=== PATIENT | female | born 1965 | race Caucasian/White ===

== ENCOUNTER 2016-12-19 00:20 | Emergency (ER) | payer SELFPAY ==
[2016-12-19] MEDS ORDERED: NORMAL SALINE 1000 ML 1,000 ML IV ONE ×2 (00:33→04:16)
--- NOTE | 2016-12-19 00:38 | ER Document Report ---
ED General - General Information source: Emergency Med Personnel Cannot obtain history due to: Intoxicated, Altered mental status <GIULIA LYNN - Last Filed: 12/19/16 04:16> <GIULIA BARAHONA - Last Filed: 12/19/16 05:48> <RILEY MAN - Last Filed: 12/20/16 12:01> - General Chief Complaint: Altered Mental Status Stated Complaint: ALTERED MENTAL STATUS Notes: Patient is a 51-year-old female who presents after taking multiple undetermined substances prior to arrival. EMS states that family called them and the patient became increasingly confused and less responsive. When they first arrived the patient was slurring her speech and did not make any sense. In route to the emergency department patient became completely obtunded, with periods of apnea GCS of 3. Total 2 mg of Narcan was given and patient did wake up, begin have spontaneous respirations and began moaning incomprehensible sounds. She moved all extremities spontaneously. She had no known prescription medications at that house. She was witnessed by family drinking heavily tonight. No prior history of similar episodes in the past per family or EMS report. No additional history can be obtained as patient is altered at time of arrival. (GIULIA LYNN) Past Medical History - General Information source: Emergency Med Personnel Cannot obtain history due to: Intoxicated, Altered mental status - Social History Smoking Status: Unknown if Ever Smoked Frequency of alcohol use: Heavy Lives with: Family Family History: Reviewed & Not Pertinent <GIULIA LYNN - Last Filed: 12/19/16 04:16> Review of Systems - Review of Systems -: Yes ROS unobtainable due to patient's medical condition <GIULIA LYNN - Last Filed: 12/19/16 04:16> Physical Exam - Vital signs Interpretation: Hypotensive <GIULIA LYNN - Last Filed: 12/19/16 04:16> <GIULIA BARAHONA - Last Filed: 12/19/16 05:48> <RILEY MAN - Last Filed: 12/20/16 12:01> - Vital signs Vitals: Resp 15 12/19/16 00:31 (GIULIA BARAHONA) (RIELY MAN) Notes: PHYSICAL EXAMINATION: GENERAL: Lethargic, will open her eyes to voice. GCS of 8. HEAD: Atraumatic, normocephalic. EYES: Pupils equal round and reactive to light, extraocular movements intact, sclera anicteric, conjunctiva are normal. ENT: nares patent, oropharynx clear without exudates. Moderately dry mucous membranes. NECK: Normal range of motion, supple without lymphadenopathy LUNGS: Breath sounds clear to auscultation bilaterally and equal. No wheezes rales or rhonchi. HEART: Regular rate and rhythm without murmurs ABDOMEN: Soft, nontender, normoactive bowel sounds. No guarding, no rebound. No masses appreciated. EXTREMITIES: Normal range of motion, no pitting or edema. No cyanosis. NEUROLOGICAL: No focal neurological deficits. Moves all extremities spontaneously and on command. PSYCH: Lethargic, does not answer questions appropriately SKIN: Warm, Dry, normal turgor, no rashes or lesions noted. (GIULIA LYNN) Course - Laboratory Result Diagrams: 12/19/16 01:20 12/19/16 01:20 <GIULIA LYNN - Last Filed: 12/19/16 04:16> - Laboratory Result Diagrams: 12/19/16 01:20 12/19/16 01:20 <GIULIA BARAHONA - Last Filed: 12/19/16 05:48> - Laboratory Result Diagrams: 12/19/16 01:20 12/19/16 01:20 <RILEY MAN - Last Filed: 12/20/16 12:01> - Re-evaluation Re-evalutation: 12/19/16 00:33 Patient presents obtunded initially but apparently received 2 mg of Narcan prior to arrival and is now opening her eyes, but does have unintelligible speech. She did have periods of hypoxemia and apnea in route but is at this point breathing under her own power and effectively protecting her airway. There is reports from family and EMS of the likely toxicologic origin of today' s symptoms and her clinical improvement with Narcan does suggest an opiate or clonidine component. Patient is critically ill at this time and high risk for decompensation and need of airway intervention. Will reassess frequently. 12/19/16 01:14 Patient is again more obtunded, will not open her eyes to voice or noxious stimuli. Will administer additional Narcan at this time. 12/19/16 01:48 Patient continues to be obtunded, not responding to stimuli at this time. She has not responded to 0.4 mg Narcan. Will give escalating doses at this time 12/19/16 02:09 Patient did respond to a full 2 g of Narcan. She was started on a drip at this time. She is also mildly hypotensive these on 50s. An additional 1 L bolus has been ordered. 12/19/16 03:29 Patient does respond to noxious stimuli at this time, occasionally opens her eyes. Spontaneously breathing on her own. She is continuing on the Narcan drip at this time. Family updated at the bedside. She will continue to require frequent reassessments. 12/19/16 04:17 Patient continues to wake to noxious stimuli. His remained soft and the 90s but stable. Fluid administration is ongoing. Care transferred to Dr. Barahona will monitor the patient she becomes clinically sober (GIULIA LYNN) 12/19/16 05:49 Patient is now awake and alert. Narcan drip has been stopped. Patient's tells me that she did take a bunch of medications and alcohol to try to end her life. She would not clarify what exactly what her medications were. She says that she is tired of dealing with her brother who lives in the house. She says that she works 6 days a week only to support him and her mother. She says that she, "does not want to exist". Patient currently says she does not want to see psychiatry but continues to say that she wants to and wants to terminate herself "peacefully". I will place her on involuntary commitment paperwork. If the patient continues to be awake and alert at 8am she will be medically cleared for psychiatric evaluation and placement. 12/19/16 05:51 (GIULIA BARAHONA) 12/20/16 11:59 Pt awake and alert without any complaints. Evaluated by mental health and recommends BuSpar and Celexa with rescinding of her IVC and discharge with outpatient psychiatric follow-up. Patient states she is not suicidal and feels much better. Will discharge home. Given return precautions and she understands. (RILEY MAN) - Vital Signs Vital signs: Temp Pulse Resp BP Pulse Ox 98.8 F 104 H 14 126/87 H 98 12/20/16 06:20 12/20/16 06:20 12/19/16 23:00 12/20/16 06:20 12/20/16 06:20 (GIULIA BARAHONA) (RILEY MAN) - Laboratory Laboratory results interpreted by me: 12/19/16 12/19/16 01:20 01:20 MCV 103 H MCH 35.0 H Chloride 110 H Salicylates < 1.0 L Acetaminophen < 10 L (GIULIA BARAHONA) (RILEY MAN) - EKG Interpretation by Me Additional EKG results interpreted by me: 12/19/16 02:10 Normal sinus rhythm. Rate 77. No ST elevations or depressions. QRS normal at 94. QTC at 485. (GIULIA LYNN) Critical Care Note - Critical Care Note Total time excluding time spent on procedures (mins): 36 <GIULIA LYNN - Last Filed: 12/19/16 04:16> <GIULIA BARAHONA - Last Filed: 12/19/16 05:48> <RILEY MAN - Last Filed: 12/20/16 12:01> - Critical Care Note Comments: Critical care time spent obtaining history from patient or surrogate, discussions with consultants, development of treatment plan with patient or surrogate, evaluation of patient's response to treatment, examination of patient , ordering and performing treatments and interventions, ordering and review of laboratory studies, re-evaluation of patient's condition, ordering and review of radiographic studies and review of old charts (GIULIA LYNN) Discharge <GIULIA LYNN - Last Filed: 12/19/16 04:16> <GIULIA BARAHONA - Last Filed: 12/19/16 05:48> <RILEY MAN - Last Filed: 12/20/16 12:01> - Discharge Clinical Impression: Suicide attempt Overdose Qualifiers: Encounter type: initial encounter Injury intent: undetermined intent Qualified Code(s): T50.904A - Poisoning by unspecified drugs, medicaments and biological substances, undetermined, initial encounter Altered mental status Qualifiers: Altered mental status type: somnolence Qualified Code(s): R40.0 - Somnolence Condition: Stable Disposition: HOME, SELF-CARE Additional Instructions: Take the medications as prescribed. If he had any thoughts of hurting herself, return immediately to the emergency room. Follow-up with the mental health resources that your provided with. DEPRESSION: Your evaluation reveals that you have mental depression. While symptoms may be vague, they often include disturbance of sleep, fatigue, loss of appetite , and general loss of interest in life. While depression may be a side effect of drugs, or a reaction to a major change in your life, many cases have no known cause. If depression is acute, and related to a major loss in your life, you can expect it to clear completely with time. If you have been depressed a long time , are prone to repeated bouts of depression or low mood, or have been thinking of suicide, get help. Depression can be treated with anti-depressant medication and counselling. Long-term depression will often take a few weeks to clear, even with appropriate medication. Follow-up care is important. SUICIDAL IDEATION: Suicidal ideation is a common medical term for thoughts about suicide, which may be as detailed as a formulated plan, without the suicidal act itself. Although most people who undergo suicidal ideation do not commit suicide, some go on to make suicide attempts. The range of suicidal ideation varies greatly from fleeting to detailed planning, role playing, and unsuccessful attempts. While thoughts about suicide are common, most people do not carry out serious actions to commit suicide. Based upon your evaluation and discussion with you, we do not believe you are currently at risk to act upon your thoughts of suicide. You have agreed to return to the Emergency Department, at any time , if you feel inclined to act upon your suicidal thoughts. FOLLOW-UP CARE: If you have been referred to a physician for follow-up care, call the physician s office for an appointment as you were instructed or within the next two days. If you experience worsening or a significant change in your symptoms, notify the physician immediately or return to the Emergency Department at any time for re-evaluation. Prescriptions: Buspirone HCl [Buspar 10 mg Tablet] 10 mg PO QHS #7 tablet Citalopram Hydrobromide [Celexa 20 mg Tablet] 20 mg PO DAILY #7 tablet Referrals: [facility] [Outside] - Follow up as needed
[2016-12-19] MEDS ORDERED: NALOXONE HCL INJ/PF 0.4 MG/1 ML SDV ONE ×2 (01:10→01:28)
[2016-12-19 01:40] LABS: ABSOLUTE EOSINOPHILS # (AUTO) 0.1 10^3/uL (0.0-0.6); ABSOLUTE LYMPHOCYTES (AUTO) 1.8 10^3/uL (0.5-4.7); ABSOLUTE MONOCYTES (AUTO) 0.7 10^3/uL (0.1-1.4); ABSOLUTE NEUT (AUTO) 3.7 10^3/uL (1.7-8.2); BASOPHILS % (AUTO) 0.6 % (0-2); EOSINOPHILS % (AUTO) 1.5 % (0-6); HEMATOCRIT 39.8 % (36.0-47.0); HEMOGLOBIN 13.5 g/dL (12.0-15.5); HGB HCT DIFFERENCE 0.7; LYMPHOCYTES % (AUTO) 28.3 % (13-45); MEAN CORPUSCULAR HGB CONC 34.1 g/dL (32.0-36.0); MEAN CORPUSCULAR VOLUME 103 fl (80-97); RED BLOOD COUNT 3.87 10^6/uL (3.72-5.28); SEGMENTED NEUTROPHILS % (AUTO) 58.6 % (42-78); WHITE BLOOD COUNT 6.3 10^3/uL (4.0-10.5)
[2016-12-19 01:45] LABS: ALANINE AMINOTRANSFERASE 21 U/L (9-52); ALBUMIN 3.5 g/dL (3.5-5.0); ALCOHOL 205 mg/dL (NONE DETECTED); ALKALINE PHOSPHATASE 64 U/L (38-126); ANION GAP 9 (5-19); ASPARTATE AMINO TRANSFERASE 25 U/L (14-36); BILIRUBIN,TOTAL 0.4 mg/dL (0.2-1.3); BLOOD UREA NITROGEN 14 mg/dL (7-20); CALCIUM 8.4 mg/dL (8.4-10.2); CARBON DIOXIDE 23 mmol/L (22-30); CHLORIDE 110 mmol/L (98-107); CREATININE RESULT 0.56 mg/dL (0.52-1.25); GLUCOSE 107 mg/dL (75-110); POTASSIUM 3.8 mmol/L (3.6-5.0); TOTAL PROTEIN 6.3 g/dL (6.3-8.2)
[2016-12-19] MEDS ORDERED: NALOXONE HCL INJ 2 MG/2 ML DISP.SYRIN ONE ×3 (01:48→04:53)
[2016-12-19] MEDS ORDERED: NALOXONE HCL INJ 2 MG/2 ML DISP.SYRIN IV ONE (01:52)
[2016-12-19] MEDS: NORMAL SALINE 500 ML with NALOXONE HCL 2 MG IV PRN ×4 (02:39→04:55)
[2016-12-19 03:43] LABS: APPEARANCE,URINE CLEAR; BILIRUBIN,URINE NEGATIVE (NEGATIVE); GLUCOSE, URINE NEGATIVE (NEGATIVE); KETONES,URINE NEGATIVE (NEGATIVE); LEUKOCYTE ESTERASE,URINE NEGATIVE (NEGATIVE); NITRITE,URINE NEGATIVE (NEGATIVE); PROTEIN,URINE NEGATIVE (NEGATIVE); URINE SPECIFIC GRAVITY 1.003; UROBILINOGEN,URINE NEGATIVE mg/dL (<2.0)
[2016-12-19 03:55] LABS: URINE BARBITURATES SCREEN NEGATIVE; URINE METHADONE SCREEN NEGATIVE; URINE OPIATES LOW NEGATIVE
[2016-12-19] MEDS ORDERED: NICOTINE 14 MG/24 HR PATCH.TD24 TD ONE (05:44)
[2016-12-19 07:29] LABS: URINE PHENCYCLIDINE SCREEN NEGATIVE
--- NOTE | 2016-12-19 10:02 | ER Document Report ---
Doctor's Note Notes: 12/19/16 10:01 Patient is presently sleeping. Vital signs are stable. Based on lab work her blood alcohol should be down below 40 at this point. She originally came in just after midnight almost unresponsive, Narcan was administered and seemed to help quite a bit according to the records. She and was negative for opiates, however there are several which in the past that did not show up in her urine drug screen. Suppository for benzodiazepines. There is nail been at least 10 hours since her overdose so she may be transferred over to the psych reina portion of the emergency room. She has not been seen by the psychiatric workers this morning yet.
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
--- NOTE | 2016-12-19 12:52 | EKG REPORT ---
SEVERITY:- NORMAL ECG - SINUS RHYTHM : Confirmed by: Yajaira Leonard 19-Dec-2016 12:52:04
[2016-12-19] MEDS ORDERED: CITALOPRAM HYDROBROMIDE 20 MG TABLET PO SCH (17:00)
[2016-12-19] MEDS ORDERED: CITALOPRAM HYDROBROMIDE 20 MG TABLET PO ONE (17:30)
[2016-12-19] MEDS ORDERED: BUSPIRONE HCL 10 MG TABLET PO SCH (22:00)
[2016-12-20] MEDS ORDERED: CITALOPRAM HYDROBROMIDE 20 MG TABLET PO SCH (10:00)
[2016-12-20] MEDS ORDERED: NICOTINE 14 MG/24 HR PATCH.TD24 TD ONE (11:08)
[2016-12-20 13:22] VITALS: BP 132/69
--- NOTE | 2016-12-20 16:30 | PSYCHOLOGICAL NOTE ---
Psych Note - Psych Note Psych Note: Clinician conducted check in with patient Patient presented to [facility] ED by EMS after taking multiple undetermined substances prior to arrival. EMS states that family called them and the patient became increasingly confused and less responsive. When they first arrived the patient was slurring her speech and did not make any sense. 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 The patient openly engaged with the clinician about what happened and why stating that she lives with her brother and he needs mental health assistance. She stated that he has had odd behaviour in the past such as dumping out flower pots in the living room and when asked what he is doing, he states that he is looking for his dog. She continued to disclose that he drinks also and that is the biggest problem. She has attempted to evict him by going to court but when she called the police to have him removed they looked at the paperwork and stated they could not help her. The patient stated that she has been providing all the financial support for her mother and brother. She continued to disclose her mother is also starting to show signs of dementia and needs the patient to help care for her. She stated that yesterday she just lost it because her brother was verbally aggressive and her mother seemed like she was taking the brother's side. She continued to state that she just snapped. The patient states that she no longer wants to hurt herself. Patient discussed wanting outpatient services to continue new medications. Patient disclosed that past medications never worked making her more irritable and is surprised that she feels as good as she does today. Patient is alert and orientated to person place time and circumstance. Mood is euthymic with congruent affect. P Patient denies homicidal ideation. Patient denies auditory visual hallucinations; no delusions are noted. Thought process is organized and linear. Conversational speech was within normal rate tone and prosody. Eye contact was well maintained. Intellectual abilities appear to be within average range. Attention and concentration are fair. Insight, judgment , impulse control are fair. 311 Unspecified Depressive Disorder Impression\plan: Patient is recommended for rescind of IVC is considered psychiatrically cleared for discharge. Patient openly engaged in evaluation with clinician and conducted problem solving and solution focused for ideas on dealing with her current living arrangements. Patient states that she will continue working on getting her brother legally out of the home to protect herself and her mother. Patient agrees to obtain outpatient services with this provider of her choice; clinician provided community resource list to patient. Dr. Flynn was consulted on the care and management of this patient attending physician is in agreement with recommendations and disposition.
== END 2016-12-20 13:15 | disposition home or self-care (01) ==
LOC: ER 00:20
DX: T50.902A Poisoning by unspecified drugs, medicaments and biological substances, intentional self-harm, initial encounter (principal); T51.92XA Toxic effect of unspecified alcohol, intentional self-harm, initial encounter; I95.89 Other hypotension
CPT/HCPCS: 93005; 99291; 96361; 96374; 36415; 82962; 80307 ×4; 85025; 80053; 81001; 71010; 93010; J2310 ×2; J7030; J7040